=== PATIENT | female | born 1965 | race Caucasian/White ===

== ENCOUNTER 2016-07-24 21:14 | Emergency (ER) | payer OTHER ==
[2016-07-24] MEDS ORDERED: KETOROLAC 15 MG/1 ML VIAL IVP ONE (21:18)
[2016-07-24] MEDS ORDERED: Sodium Chloride 0.9% 1,000 ML PRIMARY IV ONE (21:18)
[2016-07-24] MEDS ORDERED: NORMAL SALINE 10 ML SYRINGE FLUSH IVP PRN (21:18)
[2016-07-24 21:22] VITALS: RESP 18; TEMP 97.1
[2016-07-24 21:52] LABS: BASOPHILS # (AUTO) 0.04 10*3/UL; BASOPHILS % (AUTO) 0.4 % (0-1); EOSINOPHILS # (AUTO) 0.28 10*3/UL; EOSINOPHILS % (AUTO) 2.9 % (0-8); HEMATOCRIT 47.6 % (37.0-47.0); HEMOGLOBIN 16.8 g/dL (12.0-16.0); LYMPHOCYTES # (AUTO) 2.56 10*3/uL; MEAN CORPUSCULAR HEMOGLOBIN 30.6 PG (27-31); MEAN CORPUSCULAR HGB CONC 35.3 g/dL (33-37); MEAN CORPUSCULAR VOLUME 86.7 FL (81-99); MEAN PLATELET VOLUME 10.9 FL (7.4-12.2); MONOCYTES # (AUTO) 0.61 10*3/UL (0.3-0.8); MONOCYTES % (AUTO) 6.4 % (5-15); NEUTROPHILS # (AUTO) 6.04 10*3/UL; NEUTROPHILS % (AUTO) 63.3 % (50-80); RED BLOOD COUNT 5.49 10^6/uL (4.20-5.40)
[2016-07-24 21:53] LABS: PLATELET MORPHOLOGY COMMENT NORMAL MORPHOLOGY (NORM); RBC MORPHOLOGY COMMENT NORMAL MORPHOLOGY (NORM); WBC MORPHOLOGY COMMENT NORMAL MORPHOLOGY (NORM)
[2016-07-24 22:02] LABS: BLOOD UREA NITROGEN 12 mg/dL (7-22); BUN/CREATININE RATIO 17.14 (6-20); C-REACTIVE PROTEIN 1.9 mg/dL (0.0-0.9); CALCIUM 9.3 mg/dL (8.7-10.7); EST GLOMERULAR FILTRATION > 60 (>60 ml/min/1.73m(2)); SERUM ALBUMIN 4.1 g/dL (3.5-4.8)
[2016-07-24 22:08] LABS: CLARITY,URINE CLEAR (CLEAR); COLOR,URINE YELLOW; PH,URINE 5.5 (5.0-8.5); URINE SAMPLE TYPE VOIDED SPECIMEN; URINE SPECIFIC GRAVITY - MAN 1.015
[2016-07-24 22:09] LABS: BILIRUBIN,URINE NEGATIVE (NEG); GLUCOSE, URINE (UA) NEGATIVE (NEG); NITRATE,URINE NEGATIVE (NEG); OCCULT BLOOD,URINE NEGATIVE (NEG); PROTEIN,URINE NEGATIVE (NEG); UROBILINOGEN,URINE 0.2 EU/dL (0.2)
[2016-07-24 22:22] LABS: ERYTHROCYTE SEDIMENTATION RATE 2 MM/HR (0-20)
--- NOTE | 2016-07-24 23:02 | DI ---
HISTORY: Abdominal pain and bloating. COMPARISON: None available. TECHNIQUE: Helical CT scanning was performed from the lung bases, through the abdomen and pelvis, to the level of lesser trochanters following the administration of IV contrast material. MPR. Overall image quality is satisfactory. FINDINGS: LUNG BASES/LOWER HEART: Basilar atelectasis. No focal basilar consolidation, pleural effusion or pneumothorax. No pericardial effusion. Posterior mediastinal lipoma incidentally noted. ABDOMEN/PELVIS: LIVER: Homogeneous parenchymal attenuation. GALLBLADDER: Distended with bile. No calcified gallstones noted. No adjacent inflammatory change. PANCREAS: Homogeneous enhancement. ADRENAL GLANDS: Maintain their triangular shape. SPLEEN: Normal enhancement pattern. KIDNEYS: Anatomic location. No hydronephrosis. Evidence of an 8 mm left lower pole hypodensity, to o small to adequately characterize. Right nonobstructing nephrolith. GREAT VESSELS: Enhance unremarkably, noting mild atherosclerotic vascular changes of the aorta and i ts branch vessels. FREE INTRAPERITONEAL FLUID: No large volume. VARIABLY DISTENDED BOWEL LOOPS: Nonobstructive bowel gas pattern. Mild suggested wall thickening an d adjacent stranding about the second/third portion of the duodenum. Multiple colonic diverticuli without adjacent inflammatory change noted. APPENDIX: Measures within normal limits at 6 mm; no adjacent inflammatory change. INTERNAL ORGANS: Uterus present. OSSEOUS STRUCTURES: No acute osseous abnormality. Multilevel thoracic and lumbar degenerative chaney es. IMPRESSION: 1. Mild suggested wall thickening and adjacent stranding about the second/third portion of the duoden um. Findings may be secondary to duodenitis or could represent early groove pancreatitis, given prox imate to the inferior pancreatic uncinate. Correlation with clinical examination and laboratory valu es requested. 2. Evidence of an 8 mm left lower pole hypodensity, too small to adequately characterize. Right nono bstructing nephrolith.
[2016-07-24] MEDS ORDERED: Amoxicill/Clav 875/125mg Tab 1 TAB TAB PO ONE (23:27)
[2016-07-24] MEDS ORDERED: Amoxicill/Clav 875/125mg Tab 1 TAB TAB PO SCH (23:30)
--- NOTE | 2016-07-24 23:44 | PDOC ---
Abdomen/Flank HPI - General Chief Complaint: General Medical Stated Complaint: Right flank pain radiating into right groin x 1 wk Date Seen by Provider: 07/24/16 Time Seen by Provider: 21:25 Source: POSITIVE: Patient - History of Present Illness Initial Comments: This patient has had about one week of increasing epigastric and low abdominal pain. She states that her symptoms first started with just some mild dyspepsia and that it has progressed to being substantially painful off and on through the day to the point where she has stop which is doing or double over with pain. She is able to eat okay has not had any substantial vomiting yet. She's also had fairly normal stools. She might of had a little bit of flank pain but not a lot. She denies any history of significant have not abdominal problems inflammatory bowel disease GI bleeds or anything of that nature. - Patient Home Medications Home Medications: Home Medications Albuterol Sulfate [Proair Hfa] 1 - 2 puff INH Q4-6H #1 inhaler 09/06/15 Albuterol Sulfate [Proair Hfa] 2 puff INH QID #1 inh 07/18/16 Cefdinir 300 mg PO Q12H #20 cap 07/18/16 Amoxicillin/Potassium Clav [Augmentin 875-125 Tablet] 1 each PO BID #20 tablet 07/24/16 Hydrocodone Bit/Acetaminophen [Gilchrist 10-325 Tablet] 1 tab PO Q4H PRN #20 tab - Patient Allergies Allergies/Adverse Reactions: Allergies Allergy/AdvReac Type Severity Reaction Status Date / Time Sulfa (Sulfonamide Allergy Intermediate HIVES Verified 07/24/16 21:41 Antibiotics) Past Medical History - heen HEENT History: Denies History Cardiovascular History: Denies History Respiratory History: Other (please comment) Additional Respiratory History: CHRONIC BRONCHITIS Gastrointestinal History: Denies History Genitourinary History: Recurrent UTI Endocrine History: Denies History Musculoskeletal History: Denies History Prosthesis or Implant: No Neurological History: Denies History Blood Disorders: Denies History Psychiatric History: Denies History History of Sexually Transmitted Diseases: No Female Reproductive History: Denies History Obstetrical History: Denies History Cancer History: Breast In Past Year Been Physically Harmed or Verbally Threatened: No History of MDRO: No History of Other Communicable Diseases: No Tobacco Use: Current Every Day Smoker Alcohol Use: Rarely Substance Use Type: None Previous Surgical History: Yes Type / Date of Surgery: BREAST CANCER 2008 Anesthesia Reactions: No Malignant Hyperthermia: No Significant Family History: No pertinent family hx Past Medical History Reviewed: Reviewed - No Changes ROS - Limitations ROS Limitations: No Limitations Constitution: REPORTS: Denies Symptoms Cardiovascular: REPORTS: Denies Cardiac Symptoms Respiratory: REPORTS: Denies Resp Symptoms Neurological: REPORTS: Denies Neuro Symptoms Gastrointestinal: REPORTS: Denies GI Symptoms Abdominal/Flank Pain PE - General Appearance General Appearance: POSITIVE: Alert, Cooperative, No Acute Distress - HEENT HEENT: POSITIVE: Head Inspection Nml, Eyes Inspection Nml - Neck Neck: POSITIVE: Normal Inspection - Respiratory Respiratory: POSITIVE: No Respiratory Distress, Breath Sounds Normal - Cardiovascular Cardiovascular: POSITIVE: Regular Rate and Rhythm, Heart Sounds Normal - Abdomen Additional Abdominal Details: Patient has some tenderness in the epigastrium and down into the right lower quadrant. There is some guarding bowel sounds are present - Neurological Neurological: POSITIVE: Affect Apporpriate, Oriented X3 Abdomen Progress - Results Reviewed by me Xrays/CTs/US Reviewed by me: Yes Radiology Findings: Duodenitis Lab Results:: Laboratory Results 07/24/16 07/24/16 07/24/16 Range/Units 21:46 22:02 23:10 WBC 9.55 (4.8-10.8) 10^3/uL RBC 5.49 H (4.20-5.40) 10^6/uL Hgb 16.8 H (12.0-16.0) g/dL Hct 47.6 H (37.0-47.0) % MCV 86.7 (81-99) FL MCH 30.6 (27-31) PG MCHC 35.3 (33-37) g/dL RDW Std Deviation 47.0 (39-50) fL RDW Coeff of Nohemy 14.7 H (11.5-14.5) % Plt Count 219 (140-350) 10*3/uL MPV 10.9 (7.4-12.2) FL Immature Gran % (Auto) 0.2 (0-5) % Neut % (Auto) 63.3 (50-80) % Lymph % (Auto) 26.8 (10-50) % [place] % (Auto) 6.4 (5-15) % Eos % (Auto) 2.9 (0-8) % Baso % (Auto) 0.4 (0-1) % Immature Gran # (Auto) 0.02 10*3/UL Neut # (Auto) 6.04 10*3/UL Lymph # (Auto) 2.56 10*3/uL [place] # (Auto) 0.61 (0.3-0.8) 10*3/UL Eos # (Auto) 0.28 10*3/UL Baso # (Auto) 0.04 10*3/UL WBC Morphology Comment Normal morphology (NORM) Plt Morphology Comment Normal morphology (NORM) RBC Morph Comment Normal morphology (NORM) ESR 2 (0-20) MM/HR Sodium 134 L (135-145) meq/L Potassium 3.9 (3.8-5.2) meq/L Chloride 104 (98-112) meq/L Carbon Dioxide 22 L (23-33) meq/L Anion Gap 8 (5-20) BUN 12 (7-22) mg/dL Creatinine 0.7 (0.50-1.20) mg/dL Estimated GFR > 60 (>60 ml/min/1.73m(2)) BUN/Creatinine Ratio 17.14 (6-20) Glucose 191 H (78-110) mg/dL Calculated Osmolality 282.0 (267-292) mOsm/kg Calcium 9.3 (8.7-10.7) mg/dL Total Bilirubin 0.5 (0.3-1.2) mg/dL AST 17 (8-39) IU/L ALT 31 (9-52) IU/L Alkaline Phosphatase 107 (38-126) IU/L C-Reactive Protein 1.9 H (0.0-0.9) mg/dL Total Protein 6.9 (6.1-8.0) g/dL Albumin 4.1 (3.5-4.8) g/dL Globulin 2.8 (2.50-4.10) g/dL Albumin/Globulin Ratio 1.40 (1.3-2.0) mg/g Lipase 294 (23-300) IU/L Ur Collection Type Voided specimen Urine Color Yellow Urine Clarity Clear (CLEAR) Urine pH 5.5 (5.0-8.5) Ur Specific [place] 1.015 (1.005-1.030) U Specif Grav (Refrac) 1.015 Urine Protein Negative (NEG) mg/dl Urine Glucose (UA) Negative (NEG) mg/dL Urine Ketones Negative (NEG) Urine Occult Blood Negative (NEG) Urine Nitrate Negative (NEG) Urine Bilirubin Negative (NEG) Urine Urobilinogen 0.2 (0.2) EU/dL Ur Leukocyte Esterase Negative (NEG) Ur Culture Indicated? Culture not set Urine HCG, Qual Negative - Patient's Progress MDM / ED Course: This patient does have some CT evidence of duodenitis. Could've been possibly pancreatitis however pancreas looks benign. Patient is feeling much better after some IV fluids and some antiemetics. We will go ahead and try to syndrome some pain medication start her on Augmentin for her duodenitis have her follow-up with general surgery in the next couple days for serial exam on her abdomen and to review her CAT scan. Otherwise hopefully she'll simply improve and do well on outpatient Augmentin therapy. Patient Care Time - Estimated PCT Patient Care Time (In Minutes): 30 Vital Signs - Recent Vital Signs Vital Signs: Vital Signs (Last 8 hours) Temp Pulse Resp BP Pulse Ox 07/24/16 21:18 97.1 F 105 H 18 160/109 96 - VS Reviewed Vital Signs Reviewed: Yes Discharge Clinical Impression: Duodenitis Discharge Disposition: Discharged to Home Condition: Stable Prescriptions / Orders: Amoxicillin/Potassium Clav [Augmentin 875-125 Tablet] 1 each PO BID #20 tablet Hydrocodone Bit/Acetaminophen [Gilchrist 10-325 Tablet] 1 tab PO Q4H PRN #20 tab PRN Reason: Pain Patient Instructions Given at Discharge: Duodenitis (ED) Additional Instructions: Follow-up with general surgery tomorrow or Friday for reevaluation of your CT in for evaluation of your abdomen Take Augmentin 875 one by mouth twice a day until seen by general surgery then per their instructions Gilchrist for pain as directed Clear liquid or full liquid diet. Follow Up With: JAMAICA ALLEN [Primary Care Provider] -
[2016-07-24] MEDS ORDERED: HYDROcodone-APAP 10 MG-325 MG TABLET PO SCH (23:45)
== END 2016-07-25 00:03 | disposition home or self-care (01) ==
LOC: ER 21:14
DX: K29.80 Duodenitis without bleeding (principal); R10.31 Right lower quadrant pain
CPT/HCPCS: 36415; 74177; 80053; 81003; 83690; 84703; 85025; 85652; 86140; 96361; 96374; 99283; J1885; J7030

== ENCOUNTER → 2016-07-26 | Outpatient (CLI) | payer OTHER ==
--- NOTE | 2016-07-26 09:23 | DI ---
US ABDOMEN LIMITED,07/26/2016 8:26 AM: Clinical History: Epigastric pain. Previous Exam: None at this facility. Findings: Multiple grayscale and color Doppler sonographic images are obtained through the right upper quadrant , and demonstrate a normal-appearing gallbladder with gallbladder wall measuring 2 mm. The common dwight e duct measured 5 mm. Right kidney measured 10.1 cm in length. The aorta is within normal limits. There is diffuse fatty infiltration of the liver. There is no evidence of ascites. Impression: Diffuse fatty infiltration of the liver otherwise unremarkable.
== END ==
LOC: US 08:20
PROVIDERS: ATTEND Surgery
DX: R10.13 Epigastric pain (principal); K76.0 Fatty (change of) liver, not elsewhere classified; F17.200 Nicotine dependence, unspecified, uncomplicated
CPT/HCPCS: 76705

== ENCOUNTER 2016-08-09 08:41 | Day surgery (SDC) | payer OTHER ==
[~2016-08-09 08:41] MED LIST: LIDOCAINE 2% VISCOUS(20 MG/1 ML) - 15 ML UD CUP PO ONE; LIDOCAINE W/ SODIUM BICARB 0.5 ML SYR ONE; Lactated Ringers 1,000 ML PRIMARY IV ONE
[2016-08-09 09:05] LABS: URINE SPECIFIC GRAVITY - MAN 1.015
--- NOTE | 2016-08-09 10:28 | GEN.OPNOTE ---
EGD Operative Note Surgery Date: 08/09/16 Preoperative Diagnosis: GERD. Epigastric abdominal pain. Duodenitis on CT scan. Postoperative Diagnosis: Same. Procedure: Esophagogastroduodenoscopy with biopsy. Surgeon: Richard Muro MD Anesthesia Provider: Kamaljit Mason CRNA Anesthesia Type: MAC Indications: See preoperative diagnosis. Findings: Esophagus: [Normal] GE Junction : [Normal with small hiatal hernia] Fundus : [Normal] Body : [Normal] Prepyloric : [Normal] Small Intestine : [Normal] A lubricated flexible upper endoscope was inserted and passed through the esophagus and stomach into the duodenum. The duodenum and duodenal bulb were unremarkable. There was no evidence of duodenitis or ulcerations. The pyloric channel was widely patent. The scope was withdrawn into the stomach. The entire mucosa of the stomach was unremarkable. Antral biopsies were taken as the patient was recently put on proton pump inhibitors. Hemostasis was assured. The scope was withdrawn into the distal esophagus. With her chronic reflux multiple biopsies were taken at and above the Z line. Hemostasis was assured. The scope was withdrawn through the remainder of a normal-appearing esophagus and brought the hypopharynx under suction completing the procedure. Patient tolerated the procedure well without complication. She was taken to outpatient surgery in stable condition. Follow-up will be with my office on an as-needed basis. We will call the biopsy results when available. Estimated Blood Loss (mL): 2 Fluids: 700 cc Pathology: Antral and distal esophageal biopsies. Complications: None
[2016-08-09 16:39] VITALS: TEMP 97.6
[2016-08-09 16:41] VITALS: RESP 18
== END 2016-08-09 11:07 | disposition home or self-care (01) ==
LOC: SDSC 08:41
PROVIDERS: ATTEND Surgery
DX: K21.9 Gastro-esophageal reflux disease without esophagitis (principal); R10.13 Epigastric pain; K29.80 Duodenitis without bleeding
CPT/HCPCS: 43239; 84703; J2704; J7120

== ENCOUNTER → 2016-10-31 | Outpatient (CLI) | payer OTHER | LOC: MOB LAB 12:03 | DX: N39.0 Urinary tract infection, site not specified (principal) | CPT/HCPCS: 87077; 87088; 87186 ==

== ENCOUNTER → 2016-11-04 | Outpatient (CLI) | payer OTHER ==
[2016-11-04 08:16] LABS: BASOPHILS # (AUTO) 0.16 10*3/UL; BASOPHILS % (AUTO) 2.2 % (0-1); EOSINOPHILS # (AUTO) 0.23 10*3/UL; EOSINOPHILS % (AUTO) 3.1 % (0-8); HEMATOCRIT 51.5 % (37.0-47.0); LYMPHOCYTES # (AUTO) 2.99 10*3/uL; MEAN CORPUSCULAR HEMOGLOBIN 30.2 PG (27-31); MEAN CORPUSCULAR VOLUME 86.3 FL (81-99); MEAN PLATELET VOLUME 11.6 FL (7.4-12.2); MONOCYTES # (AUTO) 0.51 10*3/UL (0.3-0.8); MONOCYTES % (AUTO) 6.9 % (5-15); NEUTROPHILS % (AUTO) 47.1 % (50-80); RED BLOOD COUNT 5.97 10^6/uL (4.20-5.40)
[2016-11-04 08:21] LABS: PLATELET MORPHOLOGY COMMENT NORMAL MORPHOLOGY (NORM); RBC MORPHOLOGY COMMENT NORMAL MORPHOLOGY (NORM); WBC MORPHOLOGY COMMENT NORMAL MORPHOLOGY (NORM)
[2016-11-04 08:47] LABS: BLOOD UREA NITROGEN 15 mg/dL (7-22); BUN/CREATININE RATIO 21.42 (6-20); CALCIUM 9.1 mg/dL (8.7-10.7); CHOL/HDL RATIO 5.35 RATIO (0-4.0); EST GLOMERULAR FILTRATION > 60 (>60 ml/min/1.73m(2)); HDL CHOLESTEROL 40 mg/dL (40-150); HEMOGLOBIN A1C 9.62 % (4.2-6.0); SERUM ALBUMIN 4.1 g/dL (3.5-4.8); SERUM CHOLESTEROL 214 mg/dL (120-200)
[2016-11-04 09:02] LABS: FREE T4 (FREE THYROXINE) 1.09 ng/dL (0.93-1.71)
== END ==
LOC: LAB 07:48
PROVIDERS: ATTEND Family Medicine
DX: E11.9 Type 2 diabetes mellitus without complications (principal); I10 Essential (primary) hypertension; R53.83 Other fatigue; R94.6 Abnormal results of thyroid function studies; F17.200 Nicotine dependence, unspecified, uncomplicated
CPT/HCPCS: 36415; 80053; 80061; 83036; 84439; 84443; 85025

== ENCOUNTER → 2016-12-05 | Outpatient (CLI) | payer OTHER ==
--- NOTE | 2016-12-05 13:48 | DI ---
US SOFT TISSUE HEAD/NECK,12/05/2016 1:04 PM: Clinical History: Elevated thyroid-stimulating hormone Previous Exam: None at this facility. Findings: Multiple grayscale and color Doppler sonographic images are obtained through the thyroid, and demonst rate mildly heterogeneous thyroid echotexture. The right thyroid lobe measures 4.8 x 1.1 x 1.3 cm. The thyroid isthmus measures 3 mm in AP dimension . The left thyroid lobe measures 4.5 x 1.4 x 1.5 cm. There are no cystic nor solid masses. Impression: Slightly heterogeneous thyroid otherwise unremarkable.
== END ==
LOC: US 12:57
PROVIDERS: ATTEND Pediatrics Pediatric Endocrinology
DX: R94.6 Abnormal results of thyroid function studies (principal)
CPT/HCPCS: 76536

== ENCOUNTER → 2016-12-05 | Outpatient (CLI) | payer OTHER ==
--- NOTE | 2016-12-05 13:55 | DI ---
MAMMO SCREENING B/L,12/05/2016 1:13 PM: Clinical History: Annual Screening Previous Exam: October 06, 2015 Findings: CC and MLO views of both breasts are obtained, and demonstrate scattered fibroglandular elements. Computer aided diagnostics were applied. There is no mass, suspicious cluster of microcalcifications nor areas of architectural distortion. Impression: Normal Mammogram BIRADS: 1: Negative mammogram Recommendations: Annual screening. Note: Breast examination has been discussed and encouraged, and the patient informed to return if the re is any new palpable abnormality in the interval between screening. Overall imaging assessment: Negative mammogram.
== END ==
LOC: MAMMO 12:55
PROVIDERS: ATTEND Physician Assistant
DX: Z12.31 Encounter for screening mammogram for malignant neoplasm of breast (principal); Z85.3 Personal history of malignant neoplasm of breast
CPT/HCPCS: G0202

== ENCOUNTER → 2016-12-27 | Outpatient (CLI) | payer OTHER ==
[2016-12-27 10:12] LABS: FREE T4 (FREE THYROXINE) 1.03 ng/dL (0.93-1.71); VITAMIN D 25-HYDROXY 33.6 NG/ML (30-100)
[2016-12-29 13:28] LABS: THYROGLOBULIN AB <1.8 IU/mL (<4.0); THYROID PEROXIDASE AB 0.3 IU/mL (<9.0)
== END ==
LOC: LAB 08:02
PROVIDERS: ATTEND Pediatrics Pediatric Endocrinology
DX: E11.65 Type 2 diabetes mellitus with hyperglycemia (principal); R94.6 Abnormal results of thyroid function studies; R53.83 Other fatigue; Z72.0 Tobacco use
CPT/HCPCS: 36415; 82306; 83036; 84439; 84443; 84481; 86376; 86800